=== PATIENT | male | born 1950 | race Caucasian/White ===

== ENCOUNTER 2019-11-13 08:05 | Outpatient (CLI) | payer MEDICARE ==
--- NOTE | 2019-11-13 10:45 | CT ---
CT the chest with IV contrast CT the abdomen with and without IV contrast INDICATION: History of hepatocellular carcinoma status post liver ablation. History of a partial righ t nephrectomy and neurostimulator removal. TECHNIQUE: Multiple CT images were obtained of the thorax with IV contrast. Multiphase CT evaluation the abdomen was performed with and without IV contrast. COMPARISON: None. FINDINGS: CHEST: No suspicious pulmonary nodule is demonstrated. There is a small 4 mm subpleural pulmonary nodule in the left lower lobe on image 32 of series 5. There are coronary artery and thoracic aortic calcifications. No enlarged mediastinal, hilar or axillary lymphadenopathy is present. ABDOMEN: There is cirrhotic morphology of the liver with recanalization of the umbilical vein. The spleen is e nlarged measuring 19.4 cm in its greatest craniocaudad dimension. There are endovascular coils seen involving the anterior division of the right portal vein. There are hypodense masses within the right hepatic lobe that demonstrates no appreciable enhancement. One of the largest is seen within segment 8 of the right hepatic dome on image 107 of series 3 measuring 3 cm. An additional segment 6 lesion is seen on image 111 of series 3 measuring 5.8 cm. There is a 3.6 cm segment 6 lesion on image 12 of series 3. There is a additional 3 cm segment 8 lesion on image 10 of series 3. There is a 1.4 cm segment 8 lesion on image 13 of series 3. There is a 2.5 cm segment 6 lesion on image 117 of series 3. There is an additional 2.2 cm lesion within segment 6 on image 125 of series 3. No suspi cious abnormality is seen within the caudate or left hepatic lobe. The portal vein and hepatic veins are patent. The gallbladder is mildly hydropic. Few shotty appearing lymph nodes are seen withi n the gastrohepatic ligament, none are pathologically enlarged based on size criteria. The pancreas and adrenal glands are normal appearing. There is dystrophic callus location with cortic al thinning involving the superior pole right kidney consistent patient's history of a partial right nephrectomy. No hydronephrosis is evident. There is scattered mild vascular consultation involv ing the abdominal aorta. No free fluid is demonstrated. There is a 2 cm bony hemangioma within the right aspect of the sacral promontory. No suspicious osteo lytic or osteoblastic lesion is demonstrated. There is scattered degenerative and osteoarthritic change. There is a residual neurostimulator lead is seen within the right posterior lateral epidural space at T12 and T11. IMPRESSION: 1. Findings most consistent with treated multifocal hepatocellular carcinoma the right hepatic lobe. 2. No evidence of metastatic disease to the chest and abdomen. 3. Findings of cirrhosis and portal hypertension. 4. Findings of a partial right nephrectomy. 5. Residual neurostimulator lead in the right posterior lateral epidural space at T12 and T11
[2019-11-13] MEDS ORDERED: Iopamidol 370 76% 100 ML VIAL ONE (11:59)
== END 2019-11-13 08:06 | disposition home or self-care (01) ==
LOC: CT 08:05
DX: C22.0 Liver cell carcinoma (principal); K74.60 Unspecified cirrhosis of liver; K76.6 Portal hypertension
CPT/HCPCS: 36415; 71260; 74170; 80053; 85025; 85610; 85730; 86301; Q9967